=== PATIENT | male | born 1940 | race Caucasian/White ===

== ENCOUNTER → 2025-03-23 08:14 | Outpatient (REF) | payer MEDICARE, OTHER, SELFPAY ==
[2025-03-23 09:24] LABS: Hematocrit 32.3 % (39.0-52.0); Hemoglobin 10.1 g/dL (13.0-18.0); Mean Corp Hgb Conc. 31.3 g/dL (33.0-37.0); Mean Corpuscular Volume 82.2 fL (80.0-94.0); Nucleated Red Blood Cells % 0 % (-); Platelet Count 265 10^3/uL (130-400); Red Cell Dist. Width 15.7 % (11.5-14.5)
[2025-03-23 10:14] LABS: ALT (SGPT) 12 U/L (0-50); AST (SGOT) 17 U/L (17-59); Albumin 3.5 g/dl (3.5-5.0); Alkaline Phosphatase 64 U/L (38-126); Blood Urea Nitrogen 29 mg/dl (9-20); Calcium 9.1 mg/dl (8.4-10.2); Carbon Dioxide 21 mmol/L (22-30); Chloride 114 mmol/L (98-107); Glucose 100 mg/dl (70-99); HDL Cholesterol 41 mg/dl; LDL Cholesterol, Calculated 57 mg/dl; Potassium 4.5 mmol/L (3.5-5.1); Sodium 141 mmol/L (135-145); Total Protein 6.8 g/dl (6.3-8.2); Very Low Density Lipoprotein 24 mg/dl (0-30); eGFR 54.51
[2025-03-23 10:42] LABS: TSH 0.73 uIU/ml (0.47-4.68)
== END ==
LOC: HWLAB 08:14
PROVIDERS: ATTENDING PHYSICIAN Student in an Organized Health Care Education/Training Program
DX: R05.3 Chronic cough (principal); I10 Essential (primary) hypertension; Z93.6 Other artificial openings of urinary tract status; E78.49 Other hyperlipidemia
CPT/HCPCS: 36415; 71046; 80053; 80061; 84443; 85025

== ENCOUNTER → 2025-04-09 14:23 | Outpatient (REF) | payer MEDICARE, OTHER, SELFPAY | LOC: HWRAD 14:23 | PROVIDERS: ATTENDING PHYSICIAN Specialist; FAMILY PHYSICIAN Student in an Organized Health Care Education/Training Program | DX: C67.9 Malignant neoplasm of bladder, unspecified (principal) | CPT/HCPCS: 74176 ==